=== PATIENT | male | born 1955 | race Caucasian/White ===

== ENCOUNTER 2022-06-08 00:28 | Inpatient (IN) ==
[2022-06-08 01:04] LABS: BILIRUBIN,URINE NEGATIVE (NEGATIVE); BLOOD/HEMOGLOBIN,URINE 1+ (NEGATIVE); GLUCOSE, URINE 4+ (NEGATIVE); KETONES,URINE NEGATIVE (NEGATIVE); LEUKOCYTE ESTERASE ,URINE NEGATIVE (NEGATIVE); NITRITES,URINE NEGATIVE (NEGATIVE); PROTEIN,URINE 3+ (NEGATIVE); UROBILINOGEN,URINE 1+ (NORMAL)
[2022-06-08] MEDS ORDERED: MORPHINE SULFATE INJ 2 MG INJ IVP ONE (01:06)
[2022-06-08] MEDS ORDERED: ZOFRAN INJ 4 MG VIAL IVP ONE (01:06)
--- NOTE | 2022-06-08 01:06 | DR.EXTPAIN ---
HPI Time seen Time Seen by Provider: 06/08/22 01:06 PCP Primary Care Physician: Eva Navarro HPI Comment HPI Comment: Persistent ruq pain with nausea x 2-3 days progressively worsening until he was unable to sleep tonight; worse with lying on stomach; no vomiting, diarrhea or fever; he does not drink and rarely uses tylenol; no prior hx of similar episodes Complaint/Symptoms Chief Complaint:: Patient ambulatory in the ER with complaints of stabbing abdomen pain in the right upper quadrant since 06/04/22. Patient rates pain at a 10 while lying down and when applying pressure to site. Self Treatment fo Chief Complaint: tylenol COVID-19 Coronavirus risk:travel/contact w/high risk person: No Has patient experienced Coronavirus symptoms: No Source History Provided: Patient Mode of arrival Mode of Arrival: Ambulatory Timing Onset of Chief Complaint: 06/04/22 PMH PMH Past Medical History: Yes Past Medical History: Diabetes, Dyslipidemia, Gout and Hypertension Past Surgical History: Yes Surgical History: Appendectomy Family History History of Family Medical Conditions: Yes Family Medical History: Hypertension Social History Does any household member use tobacco: No Alcohol Use: None Do you use any recreational Drugs:: No Lives With: Spouse Lives Where: Home Travel Risk Coronavirus risk:travel/contact w/high risk person: No Has patient experienced Coronavirus symptoms: No Infectious screening Have you traveled outside the country in the last 6 months?: No Isolation: Standard ROS Review of Systems Constitutional: No Symptoms Reported Eyes: No Symptoms Reported ENTM: No Symptoms Reported Respiratoy: No Symptoms Reported Cardiovascular: No Symptoms Reported Gastrointestinal/Abdominal: See HPI Genitourinary: No Symptoms Reported Neurological: No Symptoms Reported Musculoskeletal: No Symptoms Reported Integumentary: No Symptoms Reported Hematologic/Lymphatic: No Symptoms Reported Endocrine: No Symptoms Reported Psychiatric: No Symptoms Reported PE Vital Signs Vitals: Temperature 98.3 F Pulse Rate 99 Respiratory Rate 21 Blood Pressure 135/72 O2 Sat by Pulse Oximetry 95 General Limitations: No Limitations General Appearance: Alert and In No Apparent Distress Head Head Exam: Normal Inspection Eyes Eye exam: Normal Appearance ENT ENT Exam: Normal Exam Neck Neck Exam: Normal Inspection Chest Chest Inspection: Normal Inspection Respiratory Respiratory Exam: Normal Lung Sounds Bilat Cardiovascular Cardiovascular Exam: Regular Rate and Normal Rhythm Abdominal Exam Abdominal Exam: Normal Inspection, Normal Bowel Sounds and Soft Abdominal Tenderness: RUQ and Moderate (to severe) Extremities Extremities Exam: Normal Inspection Back Back Exam: Normal Inspection Neurological Neurological Exam: Alert, Oriented X3 and CN II-XII Intact Psychiatric Psychiatric Exam: Normal Affect and Normal Mood Skin Skin Exam: Warm, Dry, Intact and Normal Color COURSE Reevaluation 1st: Improved (much better but still w/"soreness") ROR Labs Reviewed Result Diagrams: 06/08/22 01:15 06/08/22 01:15 Laboratory: WBC 7.2 X10^3/uL (3.6-10.0) 06/08/22 01:15 RBC 3.97 X10^6/uL (4.7-6.0) L 06/08/22 01:15 Hgb 12.8 g/dL (13.5-18.0) L 06/08/22 01:15 Hct 38.3 % (42.0-54.0) L 06/08/22 01:15 MCV 96.5 fL (80.0-100.0) 06/08/22 01:15 MCH 32.3 pg (27.0-34.0) 06/08/22 01:15 MCHC 33.5 g/dL (33.0-35.0) 06/08/22 01:15 RDW 15.2 % (11.6-16.5) 06/08/22 01:15 Plt Count 210 X10^3/uL (150.0-450.0) 06/08/22 01:15 MPV 8.3 fL (7.4-11.0) 06/08/22 01:15 Neut % (Auto) 82.6 % (42.0-75.0) H 06/08/22 01:15 Lymph % (Auto) 7.2 % (21.0-51.0) L 06/08/22 01:15 [place] % (Auto) 9.4 % (0.0-13.0) 06/08/22 01:15 Eos % (Auto) 0.6 % (0.9-2.9) L 06/08/22 01:15 Baso % (Auto) 0.2 % (0.2-1.0) 06/08/22 01:15 Neut # (Auto) 6.0 x10^3/uL (2.2-4.8) H 06/08/22 01:15 Lymph # (Auto) 0.5 X10^3/uL (1.3-2.9) L 06/08/22 01:15 [place] # (Auto) 0.7 x10^3/uL (0.3-0.8) 06/08/22 01:15 Eos # (Auto) 0.0 x10^3/uL (0.0-0.2) 06/08/22 01:15 Baso # (Auto) 0.0 X10^3/uL (0.0-0.1) 06/08/22 01:15 Absolute Nucleated RBC 0.0 /100WBC 06/08/22 01:15 Sodium 130 mmol/L (136-145) L 06/08/22 01:15 Corrected Sodium 134 mmol/L (136-145) L 06/08/22 01:15 Potassium 3.9 mmol/L (3.5-5.1) 06/08/22 01:15 Chloride 95 mmol/L (98-107) L 06/08/22 01:15 Carbon Dioxide 24.5 mmol/L (21-32) 06/08/22 01:15 BUN 17 mg/dL (7-18) 06/08/22 01:15 Creatinine 1.87 mg/dL (0.70-1.30) H 06/08/22 01:15 Est GFR (MDRD) Af Amer 47 (>60) L 06/08/22 01:15 Est GFR (MDRD) Non-Af 39 (>60) L 06/08/22 01:15 Glucose 262 mg/dL (65-99) H 06/08/22 01:15 Hemoglobin A1c 9.0 % 06/08/22 01:15 Calcium 8.3 mg/dL (8.5-10.1) L 06/08/22 01:15 Corrected Calcium 8.9 mg/dL (8.5-10.1) 06/08/22 01:15 Total Bilirubin 1.30 mg/dL (0.2-1.0) H 06/08/22 01:15 AST 161 Units/L (15-37) H 06/08/22 01:15 ALT 159 Units/L (12-78) H 06/08/22 01:15 Alkaline Phosphatase 105 Units/L (46-116) 06/08/22 01:15 Total Protein 7.6 g/dL (6.4-8.2) 06/08/22 01:15 Albumin 3.2 g/dL (3.4-5.0) L 06/08/22 01:15 Globulin 4.4 g/dL (2.5-4.5) 06/08/22 01:15 Albumin/Globulin Ratio 0.7 Ratio (1.1-2.1) L 06/08/22 01:15 Lipase 19760 Units/L (73-393) H 06/08/22 01:15 Specimen Type Clean catch urine 06/08/22 00:54 Urine Color Estephania (YELLOW) 06/08/22 00:54 Urine Appearance Clear (CLEAR) 06/08/22 00:54 Urine pH 5.0 (5.0 - 8.0) 06/08/22 00:54 Ur Specific [place] 1.020 (1.000-1.030) 06/08/22 00:54 Urine Protein 3+ (NEGATIVE) 06/08/22 00:54 Urine Glucose (UA) 4+ (NEGATIVE) 06/08/22 00:54 Urine Ketones Negative (NEGATIVE) 06/08/22 00:54 Urine Blood 1+ (NEGATIVE) 06/08/22 00:54 Urine Nitrite Negative (NEGATIVE) 06/08/22 00:54 Urine Bilirubin Negative (NEGATIVE) 06/08/22 00:54 Urine Urobilinogen 1+ (NORMAL) 06/08/22 00:54 Ur Leukocyte Esterase Negative (NEGATIVE) 06/08/22 00:54 Urine RBC 0-2 /HPF (0-3) 06/08/22 00:54 Urine WBC None seen /HPF (0-5) 06/08/22 00:54 Ur Squamous Epith Cells Rare /HPF (NEGATIVE) 06/08/22 00:54 Urine Bacteria Negative /HPF (NEGATIVE) 06/08/22 00:54 Hyaline Casts Rare /LPF (NEGATIVE) 06/08/22 00:54 Urine Mucus Rare /HPF (NEGATIVE) 06/08/22 00:54 Ur Culture Indicated? No/not indicated 06/08/22 00:54 XRAY XRAY Interpreted by: Radiologist X-ray Results: ct abd/pelvis: 1. Cholelithiasis with acute cholecystitis. 2. Mild acute pancreatitis 3. Bilateral nephrolithiasis. 4. Colonic diverticulosis. Opioid Opioid Risk Tool Age (Luciano box if 16-45): No History of Preadolescent Sexual Abuse: No Total: 0 Total Score Risk Category: Low Risk Copyright: [employer] predicting aberrant behaviors Discharge Plan Diagnosis Discharge Problem: Acute cholecystitis, Acute pancreatitis, Acute renal insufficiency, Bilateral nephrolithiasis, Acute hyperglycemia Discharge Plan Patient Disposition: ADMITTED INPATIENT Condition: Stable
[2022-06-08] MEDS ORDERED: ZOFRAN INJ 4 MG VIAL ONE (01:10)
[2022-06-08] MEDS ORDERED: MORPHINE SULFATE INJ 2 MG INJ ONE (01:10)
[2022-06-08 01:14] LABS: APPEARANCE,URINE CLEAR (CLEAR); COLOR,URINE AMBER (YELLOW)
[2022-06-08 01:17] LABS: BACTERIA,URINE NEGATIVE /HPF (NEGATIVE); RBC,URINE 0-2 /HPF (0-3); SQUAMOUS EPITHELIAL CELL,UR RARE /HPF (NEGATIVE)
[2022-06-08 01:18] LABS: HYALINE CASTS, URINE RARE /LPF (NEGATIVE)
[2022-06-08 01:23] LABS: BASOPHILS % (AUTO) 0.2 % (0.2-1.0); EOSINOPHILS % (AUTO) 0.6 % (0.9-2.9); HEMATOCRIT 38.3 % (42.0-54.0); HEMOGLOBIN 12.8 g/dL (13.5-18.0); LYMPHOCYTES # (AUTO) 0.5 X10^3/uL (1.3-2.9); LYMPHOCYTES % (AUTO) 7.2 % (21.0-51.0); MEAN CORPUSCULAR HEMOGLOBIN 32.3 pg (27.0-34.0); MEAN CORPUSCULAR HGB CONC 33.5 g/dL (33.0-35.0); MEAN CORPUSCULAR VOLUME 96.5 fL (80.0-100.0); MEAN PLATELET VOLUME 8.3 fL (7.4-11.0); MONOCYTES # (AUTO) 0.7 x10^3/uL (0.3-0.8); MONOCYTES % (AUTO) 9.4 % (0.0-13.0); NEUTROPHILS % (AUTO) 82.6 % (42.0-75.0); RED BLOOD COUNT 3.97 X10^6/uL (4.7-6.0); RED CELL DISTRIBUTION WIDTH 15.2 % (11.6-16.5); WHITE BLOOD COUNT 7.2 X10^3/uL (3.6-10.0)
[2022-06-08 01:35] LABS: ALBUMIN 3.2 g/dL (3.4-5.0); CALCIUM 8.3 mg/dL (8.5-10.1); CARBON DIOXIDE 24.5 mmol/L (21-32); COR CA(FOR HYPOALB) 8.9 mg/dL (8.5-10.1); CREATININE 1.87 mg/dL (0.70-1.30); TOTAL PROTEIN 7.6 g/dL (6.4-8.2)
[2022-06-08] MEDS ORDERED: NS 1,000 ML IV 1,000 ML IV ONE ×2 (02:18→04:07)
[2022-06-08] MEDS ORDERED: NS 1,000 ML IV 1,000 ML ONE ×2 (02:20→04:04)
--- NOTE | 2022-06-08 04:03 | CT ---
PROCEDURE: CT Abdomen and Pelvis without Contrast .HISTORY: Abdomen pain right upper quadrant for 4 days.TECHNIQUE: Axial images were performed through the abdomen and pelvis without the administration of IV contrast with multiplanar reformations . Oral contrast was administered . Dose reduction techniques including Automated Exposure Control (AEC) and adjustment of mA and kV were utilized .COMPARISON: None .TECHNICAL QUALITY: Satisfactory .FINDINGS:Linear scar versus discoid atelectasis lung bases.Liver, spleen, and adrenals show no significant abnormality.Mild peripancreatic stranding consistent with acute pancreatitis with no pseudo cyst.Subcentimeter nonobstructing caliceal stones both kidneys with no ureteral stones or obstructive uropathy.Small stones near the neck of the gallbladder with pericholecystic stranding consistent with acute cholecystitis. Normal size biliary tree.No ascites or pneumoperitoneum.Mild atherosclerosis aorta.No lymphadenopathy.No bowel obstruction or inflammation. Previous appendectomy. Mild colonic diverticulosis.Pelvis shows no masses or free fluid in normal urinary bladder.No acute bony abnormality.IMPRESSION:1. Cholelithiasis with acute cholecystitis.2. Mild acute pancreatitis3. Bilateral nephrolithiasis.4. Colonic diverticulosis.Electronically signed by: Ellis Duran (Jun 08, 2022 04:02:23)
[2022-06-08] MEDS ORDERED: ANCEF VIAL 1 GRAM IVP ONE (04:14)
[2022-06-08] MEDS ORDERED: NS 100 ML IV 100 ML IV SCH (04:15)
[2022-06-08] MEDS ORDERED: ANCEF VIAL 1 GRAM ONE (04:22)
[2022-06-08] MEDS ORDERED: NS 100 ML IV 100 ML ONE (04:23)
--- NOTE | 2022-06-08 04:31 | EKG ---
Test Reason : preop Blood Pressure : */* mmHG Vent. Rate : 104 BPM Atrial Rate : 104 BPM P-R Int : 158 ms QRS Dur : 86 ms QT Int : 322 ms P-R-T Axes : 39 59 20 degrees QTc Int : 423 ms Sinus tachycardia Otherwise normal ECG No previous ECGs available Confirmed by James Kyle ([id number]) on 06/10/2022 2:38:34 PM Referred By: Confirmed By: James Kyle
[2022-06-08] MEDS: NS 1,000 ML IV 1,000 ML IV SCH ×3 (05:14→21:05)
--- NOTE | 2022-06-08 05:23 | RAD ---
HISTORYPRE-OP CHOLESTUDYCHEST, 1 VIEWCOMPARISONNoneFINDINGSThe cardiomediastinal silhouette is normal in size. No acute airspace disease. No pneumothorax or effusion. The bony thorax appears intact.IMPRESSIONNo acute cardiopulmonary disease.Electronically signed by: JOSH BAILEY (Jun 08, 2022 05:21:40)
[2022-06-08] MEDS: MORPHINE SULFATE INJ 2 MG INJ IVP PRN ×3 (07:50→20:27)
[2022-06-08 11:25] VITALS: BMI 33.3
[2022-06-08] MEDS: D5 1/2 NS 1,000 ML 1,000 ML IV SCH ×2 (15:00→21:53)
[2022-06-08] MEDS: LOVENOX INJ 40 MG SYR SC SCH (20:26)
[2022-06-09] MEDS: NS 1,000 ML IV 1,000 ML IV SCH (04:10)
[2022-06-09 05:59] LABS: BASOPHILS % (AUTO) 0.7 % (0.2-1.0); EOSINOPHILS # (AUTO) 0.1 x10^3/uL (0.0-0.2); EOSINOPHILS % (AUTO) 1.9 % (0.9-2.9); HEMATOCRIT 32.6 % (42.0-54.0); HEMOGLOBIN 11.2 g/dL (13.5-18.0); LYMPHOCYTES # (AUTO) 0.9 X10^3/uL (1.3-2.9); MEAN CORPUSCULAR HEMOGLOBIN 32.5 pg (27.0-34.0); MEAN CORPUSCULAR HGB CONC 34.3 g/dL (33.0-35.0); MEAN CORPUSCULAR VOLUME 94.7 fL (80.0-100.0); MEAN PLATELET VOLUME 8.9 fL (7.4-11.0); MONOCYTES # (AUTO) 0.9 x10^3/uL (0.3-0.8); MONOCYTES % (AUTO) 13.3 % (0.0-13.0); NEUTROPHILS # (AUTO) 4.6 x10^3/uL (2.2-4.8); NEUTROPHILS % (AUTO) 70.1 % (42.0-75.0); RED BLOOD COUNT 3.44 X10^6/uL (4.7-6.0); RED CELL DISTRIBUTION WIDTH 14.9 % (11.6-16.5); WHITE BLOOD COUNT 6.5 X10^3/uL (3.6-10.0)
[2022-06-09] MEDS: D5 1/2 NS 1,000 ML 1,000 ML IV SCH ×3 (05:59→21:59)
[2022-06-09 06:10] LABS: ALANINE AMINOTRANSFERASE 141 Units/L (12-78); ALBUMIN 2.5 g/dL (3.4-5.0); ALKALINE PHOSPHATASE 94 Units/L (46-116); ASPARTATE AMINO TRANSFERASE 150 Units/L (15-37); BLOOD UREA NITROGEN 13 mg/dL (7-18); CALCIUM 7.8 mg/dL (8.5-10.1); CARBON DIOXIDE 26.7 mmol/L (21-32); CHLORIDE 100 mmol/L (98-107); COR NA(FOR HYPERGLY) 135 mmol/L (136-145); CREATININE 1.48 mg/dL (0.70-1.30); SODIUM 133 mmol/L (136-145); TOTAL PROTEIN 6.5 g/dL (6.4-8.2); eGFR NON BLACK RACES 51 (>60)
[2022-06-09 06:50] LABS: LIPASE 10832 Units/L (73-393)
[2022-06-09 06:51] LABS: AMYLASE 978 Units/L (25-115)
[2022-06-09] MEDS: MORPHINE SULFATE INJ 2 MG INJ IVP PRN ×2 (08:03→21:08)
--- NOTE | 2022-06-09 11:46 | DR.PROGNOT ---
HOSPITAL PROGRESS NOTE Progress Note for Day of: Progress Note Date: 06/09/22 Chief Complaint Chief Complaint: less abdominal pain . no nausea ,no vomiting .. lab values are improving . WBC 11.2 . lipase is down to 10,000 Past Medical Family Social History Past Med/Fam/Surg Hx: No changes since H&P Allergies: Allergies No Known Allergies Allergy (Verified 06/08/22 00:49) Review Of Systems ROS: No change since H&P Vital Signs Vital Signs: Temperature 98.7 F Pulse Rate [Left Radial] 85 Pulse Rate 99 Respiratory Rate 20 Blood Pressure [Left Arm] 140/81 Blood Pressure 135/72 O2 Sat by Pulse Oximetry 95 Physical Exam Oriented: Normal Cardiovascular: Normal GI: Tenderness: Epigastric (soft, full abdomen with diffuse tenderness . BS+ ) and Mild Speech Pattern: Clear and Appropriate Laboratory and Diagnostics Result Diagrams: 06/09/22 05:25 06/09/22 05:25 Labs: Laboratory WBC 6.5 X10^3/uL (3.6-10.0) 06/09/22 05:25 RBC 3.44 X10^6/uL (4.7-6.0) L 06/09/22 05:25 Hgb 11.2 g/dL (13.5-18.0) L 06/09/22 05:25 Hct 32.6 % (42.0-54.0) L 06/09/22 05:25 MCV 94.7 fL (80.0-100.0) 06/09/22 05:25 MCH 32.5 pg (27.0-34.0) 06/09/22 05:25 MCHC 34.3 g/dL (33.0-35.0) 06/09/22 05:25 RDW 14.9 % (11.6-16.5) 06/09/22 05:25 Plt Count 189 X10^3/uL (150.0-450.0) 06/09/22 05:25 MPV 8.9 fL (7.4-11.0) 06/09/22 05:25 Neut % (Auto) 70.1 % (42.0-75.0) 06/09/22 05:25 Lymph % (Auto) 14.0 % (21.0-51.0) L 06/09/22 05:25 [place] % (Auto) 13.3 % (0.0-13.0) H 06/09/22 05:25 Eos % (Auto) 1.9 % (0.9-2.9) 06/09/22 05:25 Baso % (Auto) 0.7 % (0.2-1.0) 06/09/22 05:25 Neut # (Auto) 4.6 x10^3/uL (2.2-4.8) 06/09/22 05:25 Lymph # (Auto) 0.9 X10^3/uL (1.3-2.9) L 06/09/22 05:25 [place] # (Auto) 0.9 x10^3/uL (0.3-0.8) H 06/09/22 05:25 Eos # (Auto) 0.1 x10^3/uL (0.0-0.2) 06/09/22 05:25 Baso # (Auto) 0.0 X10^3/uL (0.0-0.1) 06/09/22 05:25 Absolute Nucleated RBC 0.0 /100WBC 06/09/22 05:25 Sodium 133 mmol/L (136-145) L 06/09/22 05:25 Corrected Sodium 135 mmol/L (136-145) L 06/09/22 05:25 Potassium 3.5 mmol/L (3.5-5.1) 06/09/22 05:25 Chloride 100 mmol/L (98-107) 06/09/22 05:25 Carbon Dioxide 26.7 mmol/L (21-32) 06/09/22 05:25 BUN 13 mg/dL (7-18) 06/09/22 05:25 Creatinine 1.48 mg/dL (0.70-1.30) H 06/09/22 05:25 Est GFR (MDRD) Af Amer > 60 (>60) 06/09/22 05:25 Est GFR (MDRD) Non-Af 51 (>60) L 06/09/22 05:25 Glucose 163 mg/dL (65-99) H 06/09/22 05:25 POC Glucose (mg/dL) 164 mg/dL (65-99) H 06/09/22 11:23 Hemoglobin A1c 9.0 % 06/08/22 01:15 Calcium 7.8 mg/dL (8.5-10.1) L 06/09/22 05:25 Corrected Calcium 9.0 mg/dL (8.5-10.1) 06/09/22 05:25 Total Bilirubin 4.50 mg/dL (0.2-1.0) H 06/09/22 05:25 AST 150 Units/L (15-37) H 06/09/22 05:25 ALT 141 Units/L (12-78) H 06/09/22 05:25 Alkaline Phosphatase 94 Units/L (46-116) 06/09/22 05:25 Total Protein 6.5 g/dL (6.4-8.2) 06/09/22 05:25 Albumin 2.5 g/dL (3.4-5.0) L 06/09/22 05:25 Globulin 4.0 g/dL (2.5-4.5) 06/09/22 05:25 Albumin/Globulin Ratio 0.6 Ratio (1.1-2.1) L 06/09/22 05:25 Amylase 978 Units/L (25-115) H 06/09/22 05:25 Lipase 72411 Units/L (73-393) H 06/09/22 05:25 Specimen Type Clean catch urine 06/08/22 00:54 Urine Color Estephania (YELLOW) 06/08/22 00:54 Urine Appearance Clear (CLEAR) 06/08/22 00:54 Urine pH 5.0 (5.0 - 8.0) 06/08/22 00:54 Ur Specific [place] 1.020 (1.000-1.030) 06/08/22 00:54 Urine Protein 3+ (NEGATIVE) 06/08/22 00:54 Urine Glucose (UA) 4+ (NEGATIVE) 06/08/22 00:54 Urine Ketones Negative (NEGATIVE) 06/08/22 00:54 Urine Blood 1+ (NEGATIVE) 06/08/22 00:54 Urine Nitrite Negative (NEGATIVE) 06/08/22 00:54 Urine Bilirubin Negative (NEGATIVE) 06/08/22 00:54 Urine Urobilinogen 1+ (NORMAL) 06/08/22 00:54 Ur Leukocyte Esterase Negative (NEGATIVE) 06/08/22 00:54 Urine RBC 0-2 /HPF (0-3) 06/08/22 00:54 Urine WBC None seen /HPF (0-5) 06/08/22 00:54 Ur Squamous Epith Cells Rare /HPF (NEGATIVE) 06/08/22 00:54 Urine Bacteria Negative /HPF (NEGATIVE) 06/08/22 00:54 Hyaline Casts Rare /LPF (NEGATIVE) 06/08/22 00:54 Urine Mucus Rare /HPF (NEGATIVE) 06/08/22 00:54 Ur Culture Indicated? No/not indicated 06/08/22 00:54 Problem Patient Problems: Patient Problems (Updated 06/08/22 @ 04:12 by Leeanna Badillo) Acute cholecystitis (Acute) K81.0 Acute pancreatitis (Acute) K85.90 Acute renal insufficiency (Acute) N28.9 Bilateral nephrolithiasis (Acute) N20.0 Acute hyperglycemia (Acute) R73.9
[2022-06-09] MEDS ORDERED: TYLENOL 325 MG TAB PO PRN (15:12)
[2022-06-09] MEDS: LOVENOX INJ 40 MG SYR SC SCH (21:08)
[2022-06-10 05:18] LABS: BASOPHILS % (AUTO) 0.6 % (0.2-1.0); EOSINOPHILS # (AUTO) 0.2 x10^3/uL (0.0-0.2); EOSINOPHILS % (AUTO) 3.1 % (0.9-2.9); HEMATOCRIT 35.7 % (42.0-54.0); HEMOGLOBIN 12.3 g/dL (13.5-18.0); LYMPHOCYTES # (AUTO) 1.3 X10^3/uL (1.3-2.9); LYMPHOCYTES % (AUTO) 20.7 % (21.0-51.0); MEAN CORPUSCULAR HEMOGLOBIN 32.8 pg (27.0-34.0); MEAN CORPUSCULAR HGB CONC 34.4 g/dL (33.0-35.0); MEAN CORPUSCULAR VOLUME 95.4 fL (80.0-100.0); MEAN PLATELET VOLUME 8.7 fL (7.4-11.0); MONOCYTES # (AUTO) 0.6 x10^3/uL (0.3-0.8); MONOCYTES % (AUTO) 9.6 % (0.0-13.0); RED BLOOD COUNT 3.74 X10^6/uL (4.7-6.0); RED CELL DISTRIBUTION WIDTH 15.2 % (11.6-16.5); WHITE BLOOD COUNT 6.1 X10^3/uL (3.6-10.0)
[2022-06-10 05:29] LABS: ALANINE AMINOTRANSFERASE 199 Units/L (12-78); ALBUMIN 2.8 g/dL (3.4-5.0); ALKALINE PHOSPHATASE 122 Units/L (46-116); AMYLASE 588 Units/L (25-115); ASPARTATE AMINO TRANSFERASE 220 Units/L (15-37); BLOOD UREA NITROGEN 10 mg/dL (7-18); CALCIUM 8.8 mg/dL (8.5-10.1); CARBON DIOXIDE 26.3 mmol/L (21-32); CHLORIDE 98 mmol/L (98-107); COR CA(FOR HYPOALB) 9.8 mg/dL (8.5-10.1); COR NA(FOR HYPERGLY) 134 mmol/L (136-145); CREATININE 1.33 mg/dL (0.70-1.30); SODIUM 133 mmol/L (136-145); TOTAL PROTEIN 7.7 g/dL (6.4-8.2); eGFR NON BLACK RACES 57 (>60)
[2022-06-10] MEDS: D5 1/2 NS 1,000 ML 1,000 ML IV SCH ×4 (05:42→19:34)
[2022-06-10 05:45] LABS: LIPASE 6158 Units/L (73-393)
[2022-06-10] MEDS ORDERED: BACTROBAN TOPICAL OINT ONE (08:43)
[2022-06-10] MEDS ORDERED: BARHEMSYS INJ ONE (09:27)
[2022-06-10] MEDS ORDERED: ANCEF VIAL 1 GRAM ONE (09:27)
[2022-06-10] MEDS ORDERED: NS 1,000 ML IV 1,000 ML ONE (09:27)
[2022-06-10] MEDS ORDERED: NS 100 ML IV 100 ML ONE (09:27)
[2022-06-10] MEDS ORDERED: XYLOCAINE 2 % (PLAIN) ONE (09:32)
[2022-06-10] MEDS ORDERED: ZOFRAN INJ 4 MG VIAL ONE (09:32)
[2022-06-10] MEDS ORDERED: ZEMURON 100 MG VIAL ONE (09:32)
[2022-06-10] MEDS ORDERED: DIPRIVAN VIAL 20 ML ONE (09:32)
[2022-06-10] MEDS ORDERED: ROBINUL ONE (09:32)
[2022-06-10] MEDS ORDERED: PEPCID 20 MG VIAL ONE (09:32)
[2022-06-10] MEDS ORDERED: FENTANYL VIAL INJ 100 mcg ONE (09:32)
[2022-06-10] MEDS ORDERED: DECADRON INJ ONE (09:32)
[2022-06-10] MEDS ORDERED: BRIDION ONE (09:32)
[2022-06-10] MEDS ORDERED: VERSED ONE (09:33)
[2022-06-10] MEDS ORDERED: KETAMINE HCL ONE (09:39)
[2022-06-10] MEDS ORDERED: PRECEDEX INJ VIAL IVP ONE (09:40)
[2022-06-10] MEDS ORDERED: ULTANE GAS IN ONE ×2 (09:42→10:12)
[2022-06-10] MEDS ORDERED: LACRI-LUBE S.O.P. ONE (09:58)
[2022-06-10] MEDS ORDERED: ATROPINE SULFATE ONE (10:33)
[2022-06-10] MEDS ORDERED: TORADOL 30 MG VIAL ONE (10:35)
[2022-06-10] MEDS ORDERED: DILAUDID INJ ONE (10:43)
[2022-06-10] MEDS ORDERED: ZOFRAN INJ 4 MG VIAL IVP PRN (11:10)
[2022-06-10] MEDS ORDERED: DILAUDID INJ IVP PRN (11:10)
[2022-06-10] MEDS ORDERED: BARHEMSYS INJ IVP PRN (11:10)
[2022-06-10] MEDS ORDERED: BENADRYL INJ 50 MG VIAL IVP PRN (11:10)
[2022-06-10] MEDS: LEVAQUIN PREMIX IV 500 MG 500 MG/100 ML BAG IV SCH (11:51)
[2022-06-10] MEDS: ZOFRAN INJ 4 MG VIAL IVP PRN (15:58)
[2022-06-10] MEDS: DILAUDID INJ IVP PRN ×2 (16:00→20:57)
[2022-06-10] MEDS: NovoLIN R (or HumuLIN R) SUBCUT PRN ×2 (17:09→20:56)
[2022-06-10 17:46] LABS: ALANINE AMINOTRANSFERASE 176 Units/L (12-78); ALBUMIN 2.5 g/dL (3.4-5.0); ALKALINE PHOSPHATASE 118 Units/L (46-116); ASPARTATE AMINO TRANSFERASE 158 Units/L (15-37); BLOOD UREA NITROGEN 10 mg/dL (7-18); CALCIUM 8.1 mg/dL (8.5-10.1); CARBON DIOXIDE 23.7 mmol/L (21-32); CHLORIDE 96 mmol/L (98-107); COR CA(FOR HYPOALB) 9.3 mg/dL (8.5-10.1); COR NA(FOR HYPERGLY) 132 mmol/L (136-145); CREATININE 1.38 mg/dL (0.70-1.30); SODIUM 129 mmol/L (136-145); TOTAL PROTEIN 7.2 g/dL (6.4-8.2); eGFR NON BLACK RACES 55 (>60)
[2022-06-10] MEDS ORDERED: SNACK - Diabetic Appropriate PO SCH (20:00)
[2022-06-10] MEDS: LOVENOX INJ 40 MG SYR SC SCH (20:54)
[2022-06-11] MEDS: D5 1/2 NS 1,000 ML 1,000 ML IV SCH ×3 (00:42→06:04)
[2022-06-11] MEDS: ZOFRAN INJ 4 MG VIAL IVP PRN (04:42)
[2022-06-11] MEDS: DILAUDID INJ IVP PRN (04:43)
[2022-06-11 06:40] LABS: BASOPHILS % (AUTO) 0.4 % (0.2-1.0); HEMATOCRIT 32.7 % (42.0-54.0); HEMOGLOBIN 11.1 g/dL (13.5-18.0); LYMPHOCYTES # (AUTO) 0.8 X10^3/uL (1.3-2.9); MEAN CORPUSCULAR HEMOGLOBIN 32.5 pg (27.0-34.0); MEAN CORPUSCULAR VOLUME 95.4 fL (80.0-100.0); MEAN PLATELET VOLUME 8.7 fL (7.4-11.0); MONOCYTES # (AUTO) 0.8 x10^3/uL (0.3-0.8); MONOCYTES % (AUTO) 8.9 % (0.0-13.0); NEUTROPHILS # (AUTO) 7.5 x10^3/uL (2.2-4.8); NEUTROPHILS % (AUTO) 81.7 % (42.0-75.0); RED BLOOD COUNT 3.43 X10^6/uL (4.7-6.0); WHITE BLOOD COUNT 9.1 X10^3/uL (3.6-10.0)
[2022-06-11 07:03] LABS: ALANINE AMINOTRANSFERASE 136 Units/L (12-78); ALBUMIN 2.4 g/dL (3.4-5.0); ALKALINE PHOSPHATASE 107 Units/L (46-116); AMYLASE 129 Units/L (25-115); ASPARTATE AMINO TRANSFERASE 101 Units/L (15-37); BLOOD UREA NITROGEN 12 mg/dL (7-18); CALCIUM 8.5 mg/dL (8.5-10.1); CARBON DIOXIDE 22.2 mmol/L (21-32); CHLORIDE 95 mmol/L (98-107); COR CA(FOR HYPOALB) 9.8 mg/dL (8.5-10.1); COR NA(FOR HYPERGLY) 130 mmol/L (136-145); LIPASE 726 Units/L (73-393); SODIUM 128 mmol/L (136-145); TOTAL PROTEIN 6.9 g/dL (6.4-8.2); eGFR NON BLACK RACES 59 (>60)
[2022-06-11 09:17] VITALS: BP 155/79
[2022-06-11] MEDS: LEVAQUIN PREMIX IV 500 MG 500 MG/100 ML BAG IV SCH (10:20)
== END 2022-06-11 10:35 | disposition home or self-care (01) | DRG 444 ==
LOC: ER 00:32 → MED/SURG 04:14
PROVIDERS: ADMIT Surgery; ATTEND Surgery